=== PATIENT | female | born 2000 | race Caucasian/White ===

== ENCOUNTER 2023-03-15 13:58 | Emergency (ER) | payer OTHER ==
[~2023-03-15] VITALS: Ht 162.6 cm; Wt 52.2 kg
[~2023-03-15 13:58] MED LIST: SPRINTEC 28 DA1 EACH PO
[2023-03-15] MEDS ORDERED: ZYRTEC10 MG PO (16:01)
[2023-03-15] MEDS ORDERED: TUSNEL LIQUID178 ML PO (16:01)
[2023-03-15] MEDS ORDERED: ZITHROMAX500 MG PO (16:01)
== END 2023-03-15 16:11 | disposition home or self-care (01) ==
LOC: ER 13:58
DX: B34.9 Viral infection, unspecified (principal); R53.81 Other malaise; Z20.822 Contact with and (suspected) exposure to COVID-19